=== PATIENT | male | born 1985 | race Caucasian/White ===

== ENCOUNTER 2017-08-01 20:19 | Emergency (ER) | payer OTHER ==
[2017-08-01] MEDS: BACTRIM 160MG/800MG DS TAB PO ×2 (20:48)
[2017-08-01] MEDS: IBUPROFEN 600 MG TAB PO ×2 (20:57)
== END 2017-08-01 21:05 | disposition home or self-care (01) ==
LOC: M ED 20:19
DX: J34.0 Abscess, furuncle and carbuncle of nose (principal)
CPT/HCPCS: 87077; 87186

== ENCOUNTER 2017-10-20 18:15 | Emergency (ER) | payer OTHER ==
[2017-10-20] MEDS ORDERED: methylPREDNISolone INJ 125 MG/2 ML VIAL (J2930) IV (19:15)
[2017-10-20] MEDS: methylPREDNISolone INJ 125 MG/2 ML VIAL (J2930) IM (19:24)
== END 2017-10-20 19:36 | disposition home or self-care (01) ==
LOC: M ED 18:15
DX: L50.0 Allergic urticaria (principal); S70.361A Insect bite (nonvenomous), right thigh, initial encounter; S70.362A Insect bite (nonvenomous), left thigh, initial encounter; W57.XXXA Bitten or stung by nonvenomous insect and other nonvenomous arthropods, initial encounter; Y92.89 Other specified places as the place of occurrence of the external cause
CPT/HCPCS: J2930